=== PATIENT | male | born 1995 | race Caucasian/White ===

== ENCOUNTER 2020-09-03 16:15 | Emergency (ER) | payer OTHER ==
[~2020-09-03] VITALS: Ht 175.3 cm; Wt 70.0 kg
[2020-09-03] MEDS ORDERED: SODIUM CHLORIDE 0.9% 1,000 ML IV ONE (16:30)
[2020-09-03 17:22] LABS: BASOPHILS % 0.6 % (0.0-2.0); EOSINOPHILS % 0.1 % (0.0-5.0); HEMATOCRIT. 43.8 % (42.0-52.0); HEMOGLOBIN. 15.7 g/dL (14.0-18.0); MEAN CORPUSCULAR HEMOGLOBIN 31.3 pg (28.0-32.0); MEAN CORPUSCULAR VOLUME 87.7 fL (80.0-94.0); MEAN PLATELET VOLUME 8.4 fl (7.4-10.4); MONOCYTES % 6.9 % (2.0-8.0); NEUTROPHILS % 78.4 % (40.0-76.0); PLATELET 221 x1000/uL (130-400); RED CELL DISTRIBUTION WIDTH 12.8 % (11.6-14.6)
[2020-09-03 17:28] LABS: CHLORIDE 110 mEq/L (98-107)
[2020-09-03] MEDS ORDERED: DEXT 5%/0.9% NACL 1,000 ML IV ONE (18:30)
[2020-09-03] MEDS ORDERED: ACETAMINOPHEN 325MG TABLET PO ONE (19:15)
[2020-09-03 20:12] VITALS: BP 123/67
== END 2020-09-03 20:15 | disposition home or self-care (01) ==
LOC: ER 16:34
DX: R07.89 Other chest pain (principal); R00.2 Palpitations
CPT/HCPCS: 36415; 71045; 80053; 83735; 83880; 84443; 84484; 85025; 85379; 93005; 96360; 96361; 99285; J7030; J7042